=== PATIENT | female | born 1980 | race Caucasian/White ===

== ENCOUNTER 2024-05-11 08:12 | Emergency (ER) | payer OTHER, SELFPAY ==
[2024-05-11 08:27] VITALS: BP 169/95; PULSE 105; TEMP 36.7; O2SAT 98; BMI 39.0
--- NOTE | 2024-05-11 08:53 | XR_ITS ---
[facility] [id number] Patient Name: PAULINA MOORE MRN: [id number] date: 1980 Sex: F Assigned Patient Location: ER Current Patient Location: ER Accession/Order Number: [id number] Exam Date: 05/11/2024 09:36 Report Date: 05/11/2024 10:00 At the request of: SAMANTHA BEEBE Procedure: XR lumbar spine 2-3V EXAMINATION: XR lumbar spine 2-3V, XR sacrum coccyx min 2V HISTORY: pain COMPARISON: No relevant comparison available. FINDINGS: BONES: Normal. No significant spondylosis, scoliosis, fracture, or visible bony lesion. Minimal spondylosis DISC SPACES: Disc space narrowing L5-S1 PARASPINOUS: Negative. No paraspinous abnormality is seen. OTHER: Negative. XR/XR lumbar spine 2-3V IMPRESSION: No acute abnormality of the lumbar or sacral spine Electronically authenticated by: CLARICE GASTON Date: 05/11/2024 10:00
--- NOTE | 2024-05-11 08:55 | ED_ITS ---
HPI HPI - General Adult General Chief complaint: Back Pain/Injury Stated complaint: BACK PAIN/FALL [facility] Time Seen by Provider: 05/11/24 08:53 History of Present Illness HPI narrative: Patient is a 43-year-old female who is presenting to the ER today with chief com plaint of a fall at work. There was a several pole that was laying on the ground, patient showed me a picture of this. Patient accidentally stepped on the fall, falling backwards and landing on her coccyx and lower back. Patient did not hit her head. She is on no blood thinners. Patient is here with her mother. Patient is having moderate to severe amount of pain to her lower back and buttocks. Patient also states she has diffuse pain throughout paraspinal thoracic and lumbar spine. No bruising, no hematomas. No headache or neck pain. No other acute complaints. No syncopal episode. All systems are negative except as noted/marked. All systems reviewed and otherwise negative. Nurses note and vital signs reviewed and patient is not hypoxic. General: The patient appears moderate distress secondary to pain. Patient is sitting on her left buttock, patient was given ice but is not wearing it, stating it hurts with the ice. Education was done immediately on ice and then physical exam was continued.. Patient is resting uncomfortably on cart. Patient is not toxic, lethargic, or listless Skin: Warm, dry, no pallor noted. There is no rash noted. No petechiae, purpura. Head: Normocephalic, atraumatic, no scalp hematoma. No midline cervical tenderness to palpation. Patient has mild paracervical tenderness to palpation. Full range of motion of cervical spine with minimal pain. Eye: Normal conjunctiva, no drainage, EOMI. PERRL Ears, Nose, Mouth, and Throat: oral mucosa is moist. Nares patent. Mouth without vesicles. Cardiovascular: Regular Rate and Rhythm, no murmur, gallop, rub Respiratory: Patient is in no distress, no accessory muscle use, lungs are clear to auscultation, no wheezing, rales or rhonchi Back: Patient has mild to moderate diffuse bilateral parathoracic and paralumbar soft tissue tenderness to palpation. Patient has mild tenderness to palpation to midline lumbar spine of L2-L5, and para lumbar soft tissue over parathoracic vertebrae. No hematomas. No ecchymosis or bruising. Patient has moderate to severe midline coccyx tenderness to palpation, mild to moderate. Coccyx and sacral tenderness to palpation. No ecchymosis to the area. Mother was at bedside when lower back and sacrum coccyx was evaluated. no CVA tenderness bilaterally to percussion. GI: Obese, soft, no tenderness to palpation, no masses appreciated. No re bound, guarding, or rigidity noted. No distention Musculoskeletal: Patient has full range of motion of all of the extremities, no motor, sensory, or focal neurological deficits Neurological: A&O x4, normal speech Psychiatric: Cooperative Related Data Home Medications ?Medication ?Instructions ?Recorded ?Confirmed furosemide 20 mg tablet 20 mg PO BID 05/11/24 05/11/24 lisinopril 10 mg tablet 10 mg PO BID 05/11/24 05/11/24 metoprolol tartrate 25 mg tablet 25 mg PO Q12H 05/11/24 05/11/24 Previous Rx's ?Medication ?Instructions ?Recorded hydrocodone 5 mg-acetaminophen 325 1 tab PO Q4H PRN pain #10 tabs 05/11/24 mg tablet methocarbamol 500 mg tablet 500 mg PO Q8H PRN muscle pain #10 05/11/24 tabs Allergies Allergy/AdvReac Type Severity Reaction Status Date / Time No Known Drug Allergies Allergy Verified 05/11/24 08:23 Opioid HPI Opioid Management Most Recent Opioid Data: Last Pain Scale 9 05/11/24 08:32 05/11/24 PFSH PFSH Social History Little interest or pleasure in doing things: not at all Feeling down, depressed, or hopeless: not at all Exam Constitutional Vital Signs, click to edit/add: Last Vital Signs Temp 98.0 F 05/11/24 08:27 Pulse 105 H 05/11/24 08:27 Resp 18 05/11/24 08:27 BP 169/95 H 05/11/24 08:27 Pulse Ox 98 05/11/24 08:27 O2 Del Method Room Air 05/11/24 08:27 Course Vital Signs Vital signs: Vital Signs Temperature 98.0 F 05/11/24 08:27 Pulse Rate 105 H 05/11/24 08:27 Respiratory Rate 18 05/11/24 08:27 Blood Pressure 169/95 H 05/11/24 08:27 Pulse Oximetry 98 05/11/24 08:27 Oxygen Delivery Method Room Air 05/11/24 08:27 Temperature 98.0 F 05/11/24 08:27 Pulse Rate 105 H 05/11/24 08:27 Respiratory Rate 18 05/11/24 08:27 Blood Pressure 169/95 H 05/11/24 08:27 Pulse Oximetry 98 05/11/24 08:27 Oxygen Delivery Method Room Air 05/11/24 08:27 Medical Decision Making MDM Narrative Medical decision making narrative: Patient was given ice, she did not wear it because it was hurting. I educated she had was done immediately on the benefits of pain relief and anti- inflammatory properties of ice. Patient was also given a Motrin. X-ray of lumbar sacral coccyx spine shows no acute fracture dislocation or acute abnormality. Patient was educated on coccyx contusion. Patient was educated on sitting on donut hole pads or pillows. Education on ice, alternating Tyle Motrin for pain was also discussed. Patient is aware to use [place] instead of Tylenol as she is having a severe pain. Mother is aware of this 2. Patient will continue ice, stretching, and time. No questions at discharge. Patient was a Worker's Comp. evaluation. Discharge Plan Discharge Chief Complaint: Back Pain/Injury Clinical Impression: Lumbar contusion, Coccygeal contusion Patient Disposition: Home, Self-Care Time of Disposition Decision: 10:30 Condition: Fair Prescriptions / Home Meds: New methocarbamol 500 mg tablet 500 mg PO Q8H PRN (Reason: muscle pain) Qty: 10 0RF hydrocodone-acetaminophen 5-325 mg tablet 1 tab PO Q4H PRN (Reason: pain) Qty: 10 0RF No Action lisinopril 10 mg tablet 10 mg PO BID metoprolol tartrate 25 mg tablet 25 mg PO Q12H furosemide 20 mg tablet 20 mg PO BID Print Language: Vincentian Instructions: Coccyx Injury (ED), Contusion in Adults (ED), Musculoskeletal Pain (ED), Back Pain (ED), P.R.I.C.E. Treatment (ED) Additional Instructions: Use ice 20 minutes on, 20 minutes off. Do not use heat as discussed. Alternate Tylenol and either Motrin, Advil, or ibuprofen every 4 hours to help with pain. Maximum dose of Tylenol is 3000 mg a day. Maximum dose of either Motrin, Advil, or ibuprofen is 2400 mg a day. Follow-up with occupational health clinic for further evaluation direction and treatment. The occupational health clinic list has been provided to you. Referrals: JANE BAER DO [Primary Care Provider] - 1 week
[2024-05-11] MEDS: IBUPROFEN 400 MG TABLET 800 MG PO (08:59)
--- NOTE | 2024-05-11 09:07 | XR_ITS ---
[facility] [id number] Patient Name: PAULINA MOORE MRN: [id number] date: 1980 Sex: F Assigned Patient Location: ER Current Patient Location: ER Accession/Order Number: [id number] Exam Date: 05/11/2024 09:36 Report Date: 05/11/2024 10:00 At the request of: SAMANTHA BEEBE Procedure: XR sacrum coccyx min 2V EXAMINATION: XR lumbar spine 2-3V, XR sacrum coccyx min 2V HISTORY: pain COMPARISON: No relevant comparison available. FINDINGS: BONES: Normal. No significant spondylosis, scoliosis, fracture, or visible bony lesion. Minimal spondylosis DISC SPACES: Disc space narrowing L5-S1 PARASPINOUS: Negative. No paraspinous abnormality is seen. OTHER: Negative. XR/XR sacrum coccyx min 2V IMPRESSION: No acute abnormality of the lumbar or sacral spine Electronically authenticated by: CLARICE GASTON Date: 05/11/2024 10:00
[2024-05-11 10:43] VITALS: BP 136/88; PULSE 88; O2SAT 98
== END 2024-05-11 10:44 | disposition home or self-care (01) ==
PROVIDERS: Emergency Provider Emergency Medicine; PCP Family Medicine
DX: S30.0XXA Contusion of lower back and pelvis, initial encounter (principal); W19.XXXA Unspecified fall, initial encounter
CPT/HCPCS: 72100; 72220; 99284